=== PATIENT | female | born 1940 | race Caucasian/White ===

== ENCOUNTER → 2016-11-04 | Outpatient (CLI) | payer MEDICARE, BC ==
[2014-07-28 15:31] VITALS: BP 99/52
[~2016-11-04] MED LIST: AMIT25TA PO; CALC-299 PO; CRAN400C PO; DICL75TA PO; DOCU-109 PO; ESTR0.62 PO; FISH1CAP PO; GABA-586 PO; MULT1CAP15 PO; NAPR220T70 PO; Oxycodone Hcl/Acetaminophen PO; SULF1TAB24 PO; UBID100C26 PO
--- NOTE | 2016-11-04 16:17 | RAD ---
DATE: 11/04/16 EXAM: DIGITAL SCREEN BILAT W/CAD HISTORY: Routine screening COMPARISON: 11/04/15 This study was interpreted with the benefit of Computerized Aided Detection (CAD). TECHNIQUE: Routine digital CC and MLO views of both breasts are obtained. FINDINGS: Breast Density: HETERO The breast parenchyma is heterogenously dense, which could reduce sensitivity of mammography. Breast parenchyma level C.. No suspicious clustered microcalcifications, focal asymmetric densities or masses are seen. Scattered benign calcifications are seen in both breasts. IMPRESSION: Benign findings BI-RADS CATEGORY: 2 BENIGN FINDING(S) RECOMMENDED FOLLOW-UP: 12M 12 MONTH FOLLOW-UP PQRS compliance statement: Patient information was entered into a reminder system with a target due date for the next mammogram. Mammography is a sensitive method for finding small breast cancers, but it does not detect them all and is not a substitute for careful clinical examination. A negative mammogram does not negate a clinically suspicious finding and should not result in delay in biopsying a clinically suspicious abnormality. "Our facility is accredited by the [employer] Mammography [employer]."
== END | disposition home or self-care (01) ==
LOC: MAMMO 09:44
PROVIDERS: ATTEND Family Medicine
DX: Z12.31 Encounter for screening mammogram for malignant neoplasm of breast (principal)
CPT/HCPCS: G0202; 77067

== ENCOUNTER → 2017-11-11 | Outpatient (CLI) | payer MEDICARE, BC ==
[2014-07-28 15:31] VITALS: BP 99/52
--- NOTE | 2017-11-11 14:58 | RAD ---
DATE: 11/11/2017 EXAM: MAMMO NASH SCREENING BILATERAL HISTORY: Routine screening COMPARISON: 11/04/2016 This study was interpreted with the benefit of Computerized Aided Detection (CAD). Breast Density: HETERO The breast parenchyma is heterogenously dense, which could reduce sensitivity of mammography. Breast parenchyma level C. FINDINGS: 2-D and 3-D tomosynthesis imaging was performed in CC and MLO projections. No new or enlarging breast densities are seen. Benign type calcifications are present. No suspicious microcalcifications have developed. IMPRESSION: Stable mammograms without evidence of malignancy. BI-RADS CATEGORY: 2 BENIGN FINDING(S) RECOMMENDED FOLLOW-UP: 12M 12 MONTH FOLLOW-UP PQRS compliance statement: Patient information was entered into a reminder system with a target due date for the next mammogram. Mammography is a sensitive method for finding small breast cancers, but it does not detect them all and is not a substitute for careful clinical examination. A negative mammogram does not negate a clinically suspicious finding and should not result in delay in biopsying a clinically suspicious abnormality. "Our facility is accredited by the [employer] Mammography [employer]."
== END | disposition home or self-care (01) ==
LOC: MAMMO 13:13
PROVIDERS: ATTEND Family Medicine
DX: Z12.31 Encounter for screening mammogram for malignant neoplasm of breast (principal); Z83.3 Family history of diabetes mellitus; Z80.0 Family history of malignant neoplasm of digestive organs; Z82.49 Family history of ischemic heart disease and other diseases of the circulatory system
CPT/HCPCS: 77063; 77067

== ENCOUNTER → 2018-02-10 | Outpatient (CLI) | payer MEDICARE, BC ==
[2014-07-28 15:31] VITALS: BP 99/52
[~2018-02-10] MED LIST changes: -GABA-586 PO; +GABA300C18 PO
--- NOTE | 2018-02-10 18:07 | KCIC ---
CT scan of the head without contrast 02/10/2018 Clinical History: Vertigo and nausea. Technique: Unenhanced, contiguous, 5 mm axial sections were obtained through the head. One or more of the following individualized dose reduction techniques were utilized for this study: 1. Automated exposure control. 2. Adjustment of the mA and/or kV according to patient size. 3. Use of iterative reconstruction technique. Findings: No previous studies are available for comparison. There is generalized parenchymal atrophy. Areas of decreased attenuation are seen within the periventricular and subcortical white matter of both cerebral hemispheres consistent with areas of small vessel ischemic disease. No acute parenchymal abnormality is seen. No extra-axial fluid collection is noted. No skull fracture is seen. Impression: No acute intracranial abnormality is seen. Electronically signed by: Ramo Aragon MD (02/10/2018 6:03 PM) [email or web address]
== END | disposition home or self-care (01) ==
LOC: KCIC CT 12:40
PROVIDERS: ATTEND Nurse Practitioner Family
DX: G31.89 Other specified degenerative diseases of nervous system (principal); R42 Dizziness and giddiness; R11.0 Nausea
CPT/HCPCS: 70450

== ENCOUNTER → 2018-04-27 | Outpatient (CLI) | payer MEDICARE, BC ==
[2014-07-28 15:31] VITALS: BP 99/52
--- NOTE | 2018-04-27 15:56 | KCIC ---
DEXA scan 04/27/2018 Clinical History: Postmenopausal female. Height loss. Risk factors for osteoporosis. Technique: DEXA of the lumbar spine and left forearm was performed. FINDINGS: Comparison study is dated 01/10/2014. The bone mineral density of the lumbar spine is 1.66 g/cm2 which corresponds with a T-score of 5.9. This is within normal limits. This has increased since the previous study where it measured 1.497 g/sq cm. The mean bone mineral density of the left forearm is 0.489 g/sq cm. This corresponds to a T score of -1.5. This is consistent with mild osteopenia. By [employer] on Osteoporosis criteria, a T score of 0 to-1 SD is considered to be within normal limits. A T score of -1 to -2.5 SD is considered osteopenia. A T score less than -2.5 SD is considered osteoporosis Impression: 1. The mean bone density of the lumbar spine is within normal limits. 2. Mild osteopenia of the left forearm. Electronically signed by: Ramo Aragon MD (04/27/2018 3:53 PM) [email or web address]
== END | disposition home or self-care (01) ==
LOC: KCIC DEXA 12:07
PROVIDERS: ATTEND Family Medicine
DX: M85.832 Other specified disorders of bone density and structure, left forearm (principal); Z78.0 Asymptomatic menopausal state
CPT/HCPCS: 77080; 77081